=== PATIENT | female | born 1960 ===

== ENCOUNTER 2016-10-08 11:28 | Observation (INO) | payer OTHER ==
[2016-10-08] MEDS ORDERED: HYDROMORPHONE 1 MG/ML SYRINGE IV ONE (11:42)
[2016-10-08] MEDS ORDERED: ONDANSETRON HCL 4 MG/2 ML SOL IV ONE ×2 (11:42→12:06)
[2016-10-08] MEDS ORDERED: SODIUM CHLORIDE 0.9% 1000ML 1,000 ML IV ONE ×2 (11:42→13:48)
[2016-10-08] MEDS ORDERED: ONDANSETRON HCL 4 MG/2 ML SOL ONE ×2 (11:43→12:08)
[2016-10-08] MEDS ORDERED: HYDROMORPHONE 1 MG/ML SYRINGE ONE (11:47)
[2016-10-08 11:56] LABS: BASOPHILS % (AUTO) 0 % (0-3); EOSINOPHILS % (AUTO) 0 % (0-9); HEMATOCRIT 48 % (35-47); MEAN CORPUSCULAR HGB CONC 33.8 gm/dl (32.0-36.0); MEAN CORPUSCULAR VOLUME 86 fL (81-99); MONOCYTES % (AUTO) 2.3 % (0-12); NEUTROPHILS % (AUTO) 92.1 % (37-80)
[2016-10-08 12:09] LABS: ALBUMIN 4.7 gm/dl (3.4-5.0); CALCIUM 9.5 mg/dl (8.5-10.1); POTASSIUM 3.4 mMol/L (3.5-5.1)
[2016-10-08] MEDS ORDERED: POTASSIUM CHLORIDE 2 MEQ/ML SOL IV SCH (12:15)
[2016-10-08] MEDS ORDERED: MORPHINE SULFATE 10 MG/ML SOL IV ONE (12:41)
[2016-10-08] MEDS ORDERED: MORPHINE SULFATE 10 MG/ML SOL ONE (12:42)
[2016-10-08] MEDS ORDERED: POTASSIUM CHLORIDE 2 MEQ/ML SOL IV ONE (12:42)
[2016-10-08] MEDS ORDERED: POTASSIUM CHLORIDE 2 MEQ/ML 30 MEQ, LIDOCAINE HCL 1% MDV 2 ML in SODIUM CHLORIDE 0.9% 5... IV ONE (12:50)
[2016-10-08] MEDS ORDERED: LIDOCAINE HCL 1% MPF SOL ONE (12:58)
[2016-10-08] MEDS ORDERED: CIPROFLOXACIN HCL 500 MG TAB PO SCH (14:00)
[2016-10-08] MEDS ORDERED: PROCHLORPERAZINE EDISYLATE 5 MG/ML SOL IV ONE (14:08)
[2016-10-08] MEDS ORDERED: PROCHLORPERAZINE EDISYLATE 5 MG/ML SOL ONE (14:10)
[2016-10-08 14:54] LABS: APPEARANCE,URINE Clear; BILIRUBIN,URINE NEGATIVE (NEGATIVE); COLOR,URINE Yellow; GLUCOSE, URINE (UA) 1+ (NEGATIVE); KETONES,URINE 1+ (NEGATIVE); LEUKOCYTE ESTERASE ,URINE NEGATIVE (NEGATIVE); NITRATE,URINE NEGATIVE (NEGATIVE); OCCULT BLOOD,URINE 2+ (NEG-TRACE); UROBILINOGEN,URINE 0.2 (0.2-1.0 EU)
[2016-10-08 15:01] LABS: AMPHETAMINES NEGATIVE (NEGATIVE); METHADONE NEGATIVE (NEGATIVE); OPIATES(OP13) POSITIVE (NEGATIVE); OXYCODONE(OXY) POSITIVE (NEGATIVE); PROPOXYPHENE(PPX) NEGATIVE (NEGATIVE); TRICYCLIC ANTIDEPRESSANTS NEGATIVE (NEGATIVE)
[2016-10-08 15:08] LABS: RBC,URINE 0-3 (0-3AV/HPF); WBC,URINE NEG (0-5AV/HPF)
[2016-10-08] MEDS ORDERED: CEFTRIAXONE 1 GM PDS 1 GM in SODIUM CHLORIDE 0.9% 100 ML 100 ML IV ONE ×2 (15:31→15:34)
[2016-10-08] MEDS ORDERED: CEFTRIAXONE 1 GM (PREMIX) 1 GM/50 ML SOL IV ONE (15:33)
[2016-10-08] MEDS ORDERED: KETOROLAC TROMETHAMINE 30 MG/ML SOL IV PRN ×2 (15:42→17:17)
[2016-10-08] MEDS ORDERED: CEFTRIAXONE 1 GM PDS ONE (15:43)
[2016-10-08] MEDS ORDERED: SODIUM CHLORIDE 0.9% 100 ML 100 ML IV ONE (15:43)
[2016-10-08] MEDS ORDERED: KETOROLAC TROMETHAMINE 30 MG/ML SOL ONE (16:00)
[2016-10-08] MEDS: KETOROLAC TROMETHAMINE 30 MG/ML SOL IV PRN ×2 (16:00→23:27)
[2016-10-08] MEDS: DEXTROSE/SALINE 0.45/KCL 20MEQ 1,000 ML/1,000 ML SOL IV ONE ×2 (16:47→16:50)
[2016-10-08] MEDS ORDERED: DEXTROSE/SALINE 0.45/KCL 20MEQ 1,000 ML/1,000 ML SOL IV ONE ×2 (17:00)
[2016-10-08] MEDS ORDERED: LORAZEPAM 2 MG/ML SOL IV ONE (17:08)
[2016-10-08 18:29] LABS: HEMATOCRIT 47 % (35-47); MEAN CORPUSCULAR VOLUME 87 fL (81-99)
[2016-10-08 18:30] LABS: CALCIUM 7.6 mg/dl (8.5-10.1); POTASSIUM 3.7 mMol/L (3.5-5.1)
[2016-10-08 18:47] LABS: LYMPHOCYTES % (MANUAL) 9 % (10-50)
[2016-10-08 18:48] LABS: BASOPHILS % (MANUAL) 0 % (0-3); EOSINOPHILS % (MANUAL) 0 % (0-9); NORMAL RBCS PRESENT
[2016-10-08] MEDS ORDERED: ONDANSETRON 4 MG ODT BU PRN (19:04)
[2016-10-08] MEDS ORDERED: ONDANSETRON HCL 4 MG/2 ML SOL IV PRN (19:05)
[2016-10-08] MEDS: DIAZEPAM 5MG/ML SOL IV PRN (19:34)
[2016-10-08] MEDS ORDERED: SODIUM CHLORIDE 0.9% FLUSH 10 ML SOL IV PRN (19:35)
[2016-10-08] MEDS: SODIUM CHLORIDE/KCL 20MEQ 1,000 ML IV SCH (19:54)
[2016-10-09] MEDS ORDERED: DIPHENHYDRAMINE 25 MG CAP ONE (01:03)
[2016-10-09] MEDS ORDERED: DIPHENHYDRAMINE 25 MG CAP PO ONE (01:15)
[2016-10-09] MEDS: SODIUM CHLORIDE/KCL 20MEQ 1,000 ML IV SCH (04:03)
[2016-10-09] MEDS: DIAZEPAM 5MG/ML SOL IV PRN (04:09)
[2016-10-09 07:56] VITALS: BP 145/96; PULSE 94; RESP 20; TEMP 97.7; O2SAT 97
== END 2016-10-09 09:20 | disposition home or self-care (01) ==
LOC: ED 11:28 → ACUTE CARE 14:04 → UNDOADMOB 14:04 → ACUTE CARE 15:30 → UNDOADMOB 15:30 → INFUSION 15:30 → EDSTATUS 15:57
PROVIDERS: ADMIT Family Medicine; ATTEND Family Medicine
DX: R10.84 Generalized abdominal pain (principal); E87.6 Hypokalemia; R73.9 Hyperglycemia, unspecified; Z87.448 Personal history of other diseases of urinary system; G89.29 Other chronic pain; M54.9 Dorsalgia, unspecified; K59.00 Constipation, unspecified
CPT/HCPCS: 99285 ×3; 74177; 80048; 80053; 80305; 81001; 82150; 82962; 83605; 83690; 85007; 85025; 85027; 85378; 96365; 96366; 96374; 96375; 99218; J0696; J0780; J1170; J2001; J2270; J2405 ×3; J3480; Q9967; 36415; 99070; 99284; J1885; J2060; J3360

== ENCOUNTER 2017-02-23 16:02 | Emergency (ER) | payer OTHER ==
[2017-02-23] MEDS ORDERED: ONDANSETRON 4 MG ODT BU PRN (16:37)
[2017-02-23] MEDS ORDERED: ONDANSETRON 4 MG ODT ONE (16:39)
[2017-02-23 16:46] LABS: HEMATOCRIT 47 % (35-47); MEAN CORPUSCULAR HGB CONC 34.9 gm/dl (32.0-36.0); MEAN CORPUSCULAR VOLUME 85 fL (81-99)
[2017-02-23 16:47] VITALS: RESP 24; TEMP 97.8
[2017-02-23 16:57] LABS: CALCIUM 9.6 mg/dl (8.5-10.1); POTASSIUM 3.4 mMol/L (3.5-5.1)
[2017-02-23 17:08] LABS: BASOPHILS % (MANUAL) 0 % (0-3); EOSINOPHILS % (MANUAL) 0 % (0-9); LYMPHOCYTES % (MANUAL) 5 % (10-50); NORMAL RBCS PRESENT
[2017-02-23] MEDS ORDERED: ACETAMI/HYDROCO 325/10 TAB PO ONE (17:21)
[2017-02-23] MEDS ORDERED: PROMETHAZINE HYDROCHLORIDE 25 MG/ML SOL IM ONE (17:21)
[2017-02-23] MEDS ORDERED: APAP/HYDROCODONE 325/5 TAB ONE (17:29)
[2017-02-23] MEDS ORDERED: PROMETHAZINE HYDROCHLORIDE 25 MG/ML SOL ONE (17:29)
[2017-02-23 18:03] VITALS: BP 133/82; PULSE 76; O2SAT 97
== END 2017-02-23 18:10 | disposition home or self-care (01) ==
LOC: ED 16:02
DX: K52.9 Noninfective gastroenteritis and colitis, unspecified (principal); R05 Cough; E87.6 Hypokalemia
CPT/HCPCS: 36415; 80048; 85007; 85027; 99283; J2550

== ENCOUNTER 2017-05-28 00:12 | Emergency (ER) | payer OTHER ==
[2017-05-28] MEDS ORDERED: KETOROLAC TROMETHAMINE 30 MG/ML SOL IV ONE (00:45)
[2017-05-28] MEDS ORDERED: PANTOPRAZOLE SODIUM 40 MG/10 ML PDS IV ONE (00:45)
[2017-05-28] MEDS ORDERED: ONDANSETRON HCL 4 MG/2 ML SOL IV ONE (00:45)
[2017-05-28] MEDS ORDERED: PROMETHAZINE HYDROCHLORIDE 25 MG/ML SOL IV ONE (00:45)
[2017-05-28] MEDS ORDERED: KETOROLAC TROMETHAMINE 30 MG/ML SOL ONE (00:49)
[2017-05-28] MEDS ORDERED: PROMETHAZINE HYDROCHLORIDE 25 MG/ML SOL ONE (00:49)
[2017-05-28] MEDS ORDERED: ONDANSETRON HCL 4 MG/2 ML SOL ONE (00:50)
[2017-05-28] MEDS ORDERED: PANTOPRAZOLE SODIUM 40 MG/10 ML PDS ONE (00:50)
[2017-05-28 01:02] LABS: BASOPHILS % (AUTO) 2 % (0-3); EOSINOPHILS % (AUTO) 1 % (0-9); HEMATOCRIT 48 % (35-47); LYMPHOCYTES % (AUTO) 16.1 % (10-50); MEAN CORPUSCULAR HEMOGLOBIN 29.1 pg (27.0-32.0); MEAN CORPUSCULAR HGB CONC 33.4 gm/dl (32.0-36.0); MEAN CORPUSCULAR VOLUME 87 fL (81-99); MONOCYTES % (AUTO) 8.2 % (0-12); NEUTROPHILS % (AUTO) 72.5 % (37-80)
[2017-05-28 01:11] LABS: CALCIUM 8.5 mg/dl (8.5-10.1); CREATININE 0.75 mg/dl (0.60-1.00)
[2017-05-28 01:17] LABS: CARBON DIOXIDE 27.5 mEq/L (21-32)
[2017-05-28] MEDS ORDERED: DIPHENHYDRAMINE 50 MG/ML SOL IV ONE (01:50)
[2017-05-28] MEDS ORDERED: DIPHENHYDRAMINE 50 MG/ML SOL ONE (01:51)
[2017-05-28 02:08] VITALS: BP 182/105; PULSE 89; RESP 16; TEMP 97; O2SAT 99
== END 2017-05-28 02:00 | disposition home or self-care (01) ==
LOC: ED 00:12
DX: K29.50 Unspecified chronic gastritis without bleeding (principal); E87.1 Hypo-osmolality and hyponatremia; E87.6 Hypokalemia
CPT/HCPCS: 36415; 80048; 85025; 96374; 96375; 99284; 99285; J1200; J1885; J2405; J2550

== ENCOUNTER 2017-06-23 06:55 | Day surgery (SDC) | payer OTHER ==
[2017-06-23] MEDS ORDERED: PROPOFOL 500 MG/50 ML EMU IV ONE (07:20)
[2017-06-23] MEDS ORDERED: LIDOCAINE HCL 1% MPF SOL ONE (07:20)
[2017-06-23] MEDS ORDERED: PROPOFOL 10 MG/ML EMU IV ONE (08:25)
[2017-06-23 09:10] VITALS: TEMP 97.3
[2017-06-23] MEDS ORDERED: ONDANSETRON HCL 4 MG/2 ML SOL ONE (09:26)
[2017-06-23 12:21] VITALS: O2SAT 99
[2017-06-23 12:25] VITALS: BP 124/74; PULSE 60; RESP 18
== END 2017-06-23 10:20 | disposition home or self-care (01) ==
LOC: SURG 06:55
PROVIDERS: ATTEND Surgery
DX: Z12.11 Encounter for screening for malignant neoplasm of colon (principal); E11.9 Type 2 diabetes mellitus without complications; R10.13 Epigastric pain; R11.2 Nausea with vomiting, unspecified
CPT/HCPCS: 99001; J2405; J2001; J2704